=== PATIENT | female | born 1975 | race African-American/Black ===

== ENCOUNTER 2017-10-22 15:05 | Emergency (ER) | payer OTHER, MEDICAID ==
[~2017-10-22] VITALS: Ht 170.2 cm; Wt 95.3 kg
[2017-10-22 15:12] VITALS: BP 111/72
--- NOTE | 2017-10-22 16:14 | Emergency Room Report ---
History of Present Illness General Chief Complaint: Malfunctioning Gastric Tube Source: Patient, Family Member Present Illness HPI 42-year-old female presents ED for G-tube placement. Patient coming from home. Noted by EMS to be dislodged today. On arrival patient showing no signs of distress. No nausea or vomiting. No other aggravating or relieving factors. No other associated symptoms Allergies: Coded Allergies: No Known Allergies (Unverified , 10/22/17) Patient History Past Medical History: HTN Past Surgical History: other - gtube Pertinent Family History: none Social History: Denies: smoking, alcohol use, drug use Now: No Immunizations: UTD Reviewed Nursing Documentation: PMH: Agreed, PSxH: Agreed Nursing Documentation-PMH Hx Hypertension: Yes Review of Systems All Other Systems: negative except mentioned in HPI Physical Exam Vital Signs Date Time Temp Pulse Resp B/P (MAP) Pulse Ox O2 Delivery O2 Flow Rate FiO2 10/22/17 15:02 97.7 76 18 97/67 98 Room Air Sp02 EP Interpretation: reviewed, normal General Appearance: no apparent distress, alert, GCS 15, non-toxic Head: normocephalic, atraumatic Eyes: bilateral eye normal inspection, bilateral eye PERRL ENT: hearing grossly normal, normal pharynx, no angioedema, normal voice Neck: full range of motion, supple/symm/no masses Respiratory: chest non-tender, lungs clear, normal breath sounds, speaking full sentences Cardiovascular #1: regular rate, rhythm, no edema Cardiovascular #2: 2+ carotid (R), 2+ carotid (L), 2+ radial (R), 2+ radial (L) , 2+ dorsalis pedis (R), 2+ dorsalis pedis (L) Gastrointestinal: normal bowel sounds, non tender, soft, non-distended, no guarding, no rebound, other - Gtube site C/D/I Rectal: deferred Genitourinary: normal inspection, no CVA tenderness Musculoskeletal: back normal, non-tender Neurologic: alert, responsive Psychiatric: mood/affect normal, no suicidal/homicidal ideation Reflexes: 3+ bicep (R), 3+ bicep (L), 3+ tricep (R), 3+ tricep (L), 3+ knee (R) , 3+ knee (L) Skin: normal color, no rash, warm/dry, well hydrated Lymphatic: no adenopathy Procedures Additional Procedure Procedure Narrative G-tube placement Patient placed on stretcher. Old G-tube is removed by deflating the balloon using syringe. G-tube site is inspected with no contraindications to G-tube placement. G-tube slowly inserted until resistance is met; G-tube balloon is slowly filled with 20 mL of normal saline and slowly retracted back until resistance is met. G-tube placement is confirmed with KUB study using Gastrografin Medical Decision Making Diagnostic Impression: Primary Impression: Dislodged gastrostomy tube ER Course Hospital Course 42-year-old female presents to ED for G-tube placement. Clinical course Patient placed on stretcher. After initial history and physical I replaced G- tube and inflate the balloon. G-tube placement confirmed with KUB study. Patient remained stable without any signs of distress. Brother at bedside made aware that G-tube was successfully replaced Diagnosis - malfunction of G tube stable and discharged back to home. Followup with PMD. Return to ED if symptoms recur or worsen Other X-Ray Diagnostic Results Other X-Ray Diagnostic Results : X-Ray ordered: kub # of Views/Limited Vs Complete: 1 View Indication: Other - gtube Interpretation: nonspecific bowel gas, no sbo, other - gtube in place Impression: No acute disease Electronically Signed by: Electronically signed by Leonel Lees MD Last Vital Signs Date Time Temp Pulse Resp B/P (MAP) Pulse Ox O2 Delivery O2 Flow Rate FiO2 10/22/17 15:02 97.7 76 18 97/67 98 Room Air Status: improved Disposition: HOME, SELF-CARE Condition: Stable Referrals: [facility] (PCP) Patient Instructions: Gastrostomy Tube Home Guide, Adult LEONEL LEES M.D. Oct 22, 2017 16:14
--- NOTE | 2017-10-22 16:24 | Diagnostic Imaging Report ---
Indication: Status post gastrostomy replacement Technique: Supine view of the abdomen after injection of water-soluble contrast into gastrostomy Comparison: none Findings: Contrast opacifies the stomach. No contrast extravasation is demonstrated. The bowel gas pattern is unremarkable. There is an inferior vena cava filter present. There is ventriculoperitoneal shunt tubing present. Impression: Satisfactory position of gastrostomy tube Other findings as noted
[2017-10-22 19:11] VITALS: BP 108/69
[2017-10-22] MEDS ORDERED: levETIRAcetam 500mg/5ml Liquid GT ONE (20:45)
[2017-10-22 21:30] VITALS: BP 120/78
[2017-10-22 21:45] VITALS: BP 120/78
== END 2017-10-22 21:45 | disposition home or self-care (01) ==
LOC: EDBD 15:05 → EMR 16:03
DX: Z43.1 Encounter for attention to gastrostomy (principal); I10 Essential (primary) hypertension
CPT/HCPCS: 43760; 74018; 99284; Q9963